=== PATIENT | female | born 1980 | race Caucasian/White ===

== ENCOUNTER → 2023-11-05 | Outpatient (CLI) | payer BC ==
[2023-11-05 08:21] LABS: BASOPHILS % (AUTO) 0.5 % (0-1); EOSINOPHILS # (AUTO) 0.1 X10'3 (0-0.9); EOSINOPHILS % (AUTO) 1.5 % (0-6); HEMATOCRIT 41.7 % (35.0-45.0); HEMOGLOBIN 13.9 g/dl (12.0-16.0); LYMPHOCYTES # (AUTO) 2.5 X10'3 (1.1-4.8); LYMPHOCYTES % (AUTO) 40.1 % (21-51); MEAN CORPUSCULAR HEMOGLOBIN 30.7 PG (27.0-31.0); MEAN CORPUSCULAR HGB CONC 33.4 g/dL (33.0-36.5); MEAN CORPUSCULAR VOLUME 91.9 FL (78-98); MEAN PLATELET VOLUME 8.3 FL (7.4-10.4); MONOCYTES # (AUTO) 0.4 X10'3 (0-0.9); MONOCYTES % (AUTO) 6.8 % (2-12); NEUTROPHILS # (AUTO) 3.2 X10'3 (1.8-7.7); NEUTROPHILS % (AUTO) 51.1 % (42-75); PLATELET COUNT 283 X10'3 (140-440); RED BLOOD COUNT 4.54 X10'6 (4.20-5.60); RED CELL DISTRIBUTION WIDTH 13.7 % (11.5-14.5); WHITE BLOOD COUNT 6.3 X10'3 (4.5-11.0)
[2023-11-05 10:33] LABS: % IRON SATURATION 38 % (11-46); IRON 131 UG/DL (49-151); TOTAL IRON BINDING CAPACITY 344 UG/DL (259-388)
[2023-11-05 10:45] LABS: ALANINE AMINOTRANSFERASE 36 U/L (12-78); ALBUMIN 4.4 G/DL (3.4-5.0); ALBUMIN/GLOBULIN RATIO 1.3 (1.1-1.5); ALKALINE PHOSPHATASE 75 IU/L (46-116); ANION GAP 8 (8-16); ASPARTATE AMINO TRANSFERASE 20 U/L (10-37); BILIRUBIN,TOTAL 0.7 MG/DL (0.1-1.0); BLOOD UREA NITROGEN 11 MG/DL (7-18); BUN/CREATININE RATIO 13.3 (10.0-20.0); C-REACTIVE PROTEIN 0.06 MG/DL (0.0-0.5); CALCIUM 9.3 MG/DL (8.5-10.1); CHLORIDE 103 MMOL/L (99-107); CHOLESTEROL 211 MG/DL (0-200); CREATININE 0.83 MG/DL (0.40-0.90); GLUCOSE 104 MG/DL (70-104); HDL CHOLESTEROL 70 MG/DL (35-60); LDL CHOLESTEROL 114 MG/DL (50-100); POTASSIUM 3.7 MMOL/L (3.5-5.1); SODIUM 141 MMOL/L (135-145); THYROID STIMULATING HORMONE 2.38 ulU/ml (0.34-4.50); TOTAL CARBON DIOXIDE 29.6 MMOL/L (24-32); TOTAL PROTEIN 7.9 G/DL (6.4-8.2); TRIGLYCERIDES 62 MG/DL (20-135); eGFR 76 ML/MIN
[2023-11-06 12:11] LABS: HOMOCYSTEINE, PLASMA 10.6 umol/L (0.0-14.5)
== END | disposition home or self-care (01) ==
LOC: LAB 07:36
PROVIDERS: ATTEND Physician Assistant
DX: R53.82 Chronic fatigue, unspecified (principal)
CPT/HCPCS: 36415; 80053; 80061; 82306; 82670; 83090; 83525; 83540; 83550; 84144; 84402; 84403; 84439; 84443; 85025; 86140

== ENCOUNTER 2024-05-02 08:38 | Outpatient (CLI) | payer BC | END 2024-05-02 23:59 | disposition home or self-care (01) | LOC: RAD 08:38 | PROVIDERS: ATTEND Nurse Practitioner | DX: R10.2 Pelvic and perineal pain (principal); Z97.5 Presence of (intrauterine) contraceptive device | CPT/HCPCS: 76830; 76856; 93976 ==

== ENCOUNTER 2024-05-26 09:22 | Outpatient (CLI) | payer BC | END 2024-05-26 23:59 | disposition home or self-care (01) | LOC: LAB 09:22 | PROVIDERS: ATTEND Dermatology | DX: R21 Rash and other nonspecific skin eruption (principal) | CPT/HCPCS: 36415 ==

== ENCOUNTER 2024-11-20 08:22 | Outpatient (CLI) | payer BC ==
[2024-11-20 08:59] LABS: ALANINE AMINOTRANSFERASE 35 U/L (12-78); ALBUMIN 4.2 G/DL (3.4-5.0); ALBUMIN/GLOBULIN RATIO 1.4 (1.1-1.5); ALKALINE PHOSPHATASE 64 IU/L (46-116); ANION GAP 8 (8-16); ASPARTATE AMINO TRANSFERASE 14 U/L (10-37); BILIRUBIN,TOTAL 0.5 MG/DL (0.1-1.0); BLOOD UREA NITROGEN 12 MG/DL (7-18); BUN/CREATININE RATIO 18.8 (10.0-20.0); CHLORIDE 102 MMOL/L (99-107); CHOL/HDL RATIO 3.1 (0.00-4.99); CHOLESTEROL 193 MG/DL (0-200); CREATININE 0.64 MG/DL (0.40-0.90); GLUCOSE 102 MG/DL (70-104); HDL CHOLESTEROL 62 MG/DL (35-60); LDL CHOLESTEROL 113 MG/DL (50-100); POTASSIUM 4.2 MMOL/L (3.5-5.1); SODIUM 137 MMOL/L (135-145); TOTAL CARBON DIOXIDE 26.9 MMOL/L (24-32); TOTAL PROTEIN 7.3 G/DL (6.4-8.2); TRIGLYCERIDES 38 MG/DL (20-135); eGFR > 90 ML/MIN
== END 2024-11-20 23:59 | disposition home or self-care (01) ==
LOC: LAB 08:22
PROVIDERS: ATTEND Nurse Practitioner
DX: E78.2 Mixed hyperlipidemia (principal)
CPT/HCPCS: 36415; 80053; 80061

== ENCOUNTER 2024-12-20 15:25 | Outpatient (CLI) | payer BC | END 2024-12-20 23:59 | disposition home or self-care (01) | LOC: RAD 15:25 | PROVIDERS: ATTEND Nurse Practitioner | DX: R22.31 Localized swelling, mass and lump, right upper limb (principal); Z85.820 Personal history of malignant melanoma of skin | CPT/HCPCS: 76882 ==

== ENCOUNTER → 2025-01-05 | Day surgery (SDC) | payer BC ==
[~2025-01-05] VITALS: Ht 180.3 cm; Wt 71.2 kg
[~2025-01-05] MED LIST: NO HOME MEDS; normal saline 1000ml 1,000 ML IV SCH
[2025-01-05 07:54] VITALS: RESP 15; O2SAT 99
== END | disposition home or self-care (01) ==
LOC: SSTAY O 06:21
PROVIDERS: ATTEND Nurse Practitioner
DX: R59.0 Localized enlarged lymph nodes (principal); Z53.8 Procedure and treatment not carried out for other reasons
CPT/HCPCS: A6449

== ENCOUNTER 2025-05-04 08:52 | Outpatient (CLI) | payer BC ==
[~2025-05-04 08:52] MED LIST changes: -normal saline 1000ml 1,000 ML IV SCH
[2025-05-04 09:28] LABS: MEAN PLATELET VOLUME 8.4 FL (7.4-10.4); RED CELL DISTRIBUTION WIDTH 13.7 % (11.5-14.5)
[2025-05-04 09:43] LABS: CREATININE 0.70 MG/DL (0.40-0.90); TOTAL CARBON DIOXIDE 28.2 MMOL/L (24-32); eGFR > 90 ML/MIN
[2025-05-05 09:33] LABS: ESTRADIOL 150.0 pg/mL (.); FSH, SERUM 5.0 mIU/mL (.); LUTEINIZING HORMONE 7.0 mIU/mL (.); PROGESTERONE 0.5 ng/mL (.); TESTOSTERONE, SERUM 29 ng/dL (4-50)
[2025-05-05 11:11] LABS: FOLATE SERUM(FOLIC) 14.5 ng/mL (>3.0)
[2025-05-08 15:10] LABS: TESTOSTERONE, FREE, DIRECT 1.9 pg/mL (0.0-4.2)
== END 2025-05-04 23:59 | disposition home or self-care (01) ==
LOC: RAD 08:52
PROVIDERS: ATTEND Nurse Practitioner
DX: E34.9 Endocrine disorder, unspecified (principal); R79.89 Other specified abnormal findings of blood chemistry; R53.83 Other fatigue
CPT/HCPCS: 36415; 80053; 82306; 82607; 82670; 82746; 83001; 83002; 84144; 84270; 84402; 84403; 84410; 84550; 85025

== ENCOUNTER 2025-08-09 07:40 | Outpatient (CLI) | payer BC ==
[2025-08-09] VITALS (21 sets, daily range): BP systolic 100–138; BP diastolic 28–92; PULSE 82–116
== END 2025-08-09 23:59 | disposition home or self-care (01) ==
LOC: CARD DIAG 07:40
PROVIDERS: ATTEND Nurse Practitioner Adult Health
DX: Q79.60 Ehlers-Danlos syndrome, unspecified (principal)
CPT/HCPCS: 93660

== ENCOUNTER 2025-08-10 09:32 | Outpatient (CLI) | payer BC ==
[2025-08-10 10:37] LABS: MEAN PLATELET VOLUME 8.3 FL (7.4-10.4); RED CELL DISTRIBUTION WIDTH 13.2 % (11.5-14.5)
[2025-08-10 10:52] LABS: % IRON SATURATION 35.0 % (11-46)
[2025-08-11 09:16] LABS: RBC 4.35 x10E6/uL (3.77-5.28)
[2025-08-11 11:12] LABS: VITAMIN D, 25-HYDROXY 56.2 ng/mL (30.0-100.0)
[2025-08-11 13:12] LABS: THIIODOTHRONINE, FREE, SERUM 3.1 pg/mL (2.0-4.4)
[2025-08-12 09:42] LABS: CORTISOL LC 8.6 ug/dL (6.2-19.4)
[2025-08-12 11:55] LABS: COMPLEMENT C3, SERUM 113 mg/dL (82-167); COMPLEMENT C4, SERUM 12 mg/dL (12-38)
[2025-08-13 07:11] LABS: ACTH, PLASMA 13.6 pg/mL (7.2-63.3)
== END 2025-08-10 23:59 | disposition home or self-care (01) ==
LOC: LAB 09:32
PROVIDERS: ATTEND Nurse Practitioner
DX: R05.3 Chronic cough (principal); E06.3 Autoimmune thyroiditis; D50.9 Iron deficiency anemia, unspecified; E55.9 Vitamin D deficiency, unspecified
CPT/HCPCS: 36415; 82024; 82306; 82728; 82955; 83540; 83550; 84439; 84443; 84481; 85025; 85041; 86160; 86480; 86663; 86664; 86665